=== PATIENT | female | born 1965 | race Two or more races ===

== ENCOUNTER 2020-07-24 06:00 | Day surgery (SDC) | payer OTHER ==
[~2020-07-24 06:00] MED LIST: IRON325 MG PO
== END 2020-07-24 17:15 | disposition home or self-care (01) ==
LOC: CIR.AMB 06:00
PROVIDERS: ATTEND Obstetrics & Gynecology
DX: N84.0 Polyp of corpus uteri (principal); N72 Inflammatory disease of cervix uteri; Z20.828 Contact with and (suspected) exposure to other viral communicable diseases

== ENCOUNTER → 2021-03-26 | Outpatient (CLI) | payer OTHER | END | disposition home or self-care (01) | LOC: MAMO-SONO 09:10 | PROVIDERS: ATTEND Specialist | DX: N61.0 Mastitis without abscess (principal) ==